=== PATIENT | female | born 1960 | race Caucasian/White ===

== ENCOUNTER 2020-07-29 17:10 | Inpatient (IN) | payer OTHER, SELFPAY ==
[2020-07-29 17:19] VITALS: BP 119/87; PULSE 84; RESP 14; TEMP 36.8; O2SAT 96
[2020-07-29 18:19] LABS: Abs Immature Grans 0.05 10^3/uL (0.0-0.06); Absolute Basophil Count 0.01 10^3/uL (0.0-0.2); Absolute Eosinophil Count 0.17 10^3/uL (0.0-0.7); Absolute Lymphocyte Count 1.08 10^3/uL (1.2-3.4); Absolute Monocyte Count 0.73 10^3/uL (0.1-0.8); Basophils % 0.1; Eosinophils % 1.2; HCT 41.6 % (36.0-46.0); HGB 13.6 g/dL (11.2-15.7); Immature Grans % 0.4; Lymphocytes % 7.7; MCH 29.6 pg (27.0-33.0); MCHC 32.7 % (32.0-36.0); MCV 90.6 fL (80-95); MPV 9.8 fL (8.0-11.0); Monocytes % 5.2; Neutrophils % 85.4; Nucleated RBC 0 %; Platelet Count 389 10^3/uL (130-400); RBC 4.59 10^6/uL (3.93-5.22); RDW 14.1 % (11.7-14.6); RDW-SD 46.8 fL; WBC 14.03 10^3/uL (4.4-10.8)
[2020-07-29 18:20] LABS: Absolute Neutrophil Count 11.98 10^3/uL (1.2-6.7)
[2020-07-29 18:38] LABS: ALT 35 U/L (14-59); AST 15 U/L (15-37); Albumin 4.1 g/dL (3.4-5.0); Alkaline Phosphatase 76 U/L (46-116); Anion Gap 10.2 mmol/L (3-11); BUN 10 mg/dL (7-18); Bilirubin, Total 0.3 mg/dL (0.2-1.0); CO2 23.8 mmol/L (21.0-32.0); CREATININE 0.95 mg/dL (0.55-1.02); Calcium 8.9 mg/dL (8.5-10.1); Chloride 106 mmol/L (98-107); Glucose 112 mg/dL (74-106); Sodium 140 mmol/L (136-145); Total Protein 7.2 g/dL (6.4-8.2)
--- NOTE | 2020-07-29 18:53 | W.ED.GENAD ---
Discharge Plan Disposition Patient Disposition: [facility] INPATIENT Condition: Serious Discharge Details Chief Complaint: RashLesion Clinical Impression: Cellulitis Admit Date/Time: 07/29/20 19:42 Admit Provider: Petey Romo Attending Provider: Petey Romo Primary Care Provider: Unknown,Unknown ED Provider: Pal Chung Medical Decision Making <KERRIE López - Last Filed: 07/29/20 21:48> This is a 60-year-old female who thought she came in contact with poison russell on , woke up Sunday with a rash to the rest of her buttocks. Subsequently has spread, becoming more painful and itchy. She was placed on steroids and doxycycline by her primary care provider on Sunday however not having any improvement of her symptoms. She has been using Benadryl and ycar-gby-yskjkjf creams with very little relief. She denies any obvious insect bite, fever, joint pain, body aches, etc. Clinically she has an impressive erythematous, indurated rash that includes her back, buttocks, posterior upper legs, perineum. There is no areas of induration or exquisite tenderness. There are areas of ecchymosis but no petechiae. There is a single shallow lesion with serous drainage. She appears well, nontoxic. She is afebrile, blood pressure 119/87. Pulse in the 80s. Although she appears fairly well I am concerned given the rapid spread of the rash and worsening of her symptoms even though she is on both steroids and antibiotics. I believe that this very well could have began as a contact dermatitis however there appears to be a superimposed cellulitis at this point. I did request that Dr. Nicholson evaluate the patient as well. He personally evaluated the patient, please see his note. After his evaluation he recommended IV Zosyn, vancomycin, and admission. Laboratory values thus far have revealed a white count of 14.03, absolute neutrophils 11.98. H&H unremarkable. Platelets 389. Chemistries unremarkable. Tickborne panel pending. I did jan the margins of the cellulitis with a skin marker. Case discussed with our hospitalist team, Dr. Romo. He accepts admission of the patient, I will write holding orders. Medical Records Medical records reviewed: Yes I reviewed the patient's medical records. Lab Data Lab results reviewed: Yes I reviewed the patient's lab results. Lab results narrative: Laboratory Tests Range/Units 07/29/20 07/29/20 18:07 18:07 WBC (4.4-10.8) 10^3/uL 14.03 H RBC (3.93-5.22) 10^6/uL 4.59 Hgb (11.2-15.7) g/dL 13.6 Hct (36.0-46.0) % 41.6 MCV (80-95) fL 90.6 MCH (27.0-33.0) pg 29.6 MCHC (32.0-36.0) % 32.7 RDW (11.7-14.6) % 14.1 Plt Count (130-400) 10^3/uL 389 MPV (8.0-11.0) fL 9.8 Immature Gran % 0.4 Neutrophils % 85.4 Lymphocytes % 7.7 Monocytes % 5.2 Eosinophils % 1.2 Basophils % 0.1 Nucleated RBC % % 0 Absolute Neutrophils (1.2-6.7) 10^3/uL 11.98 H Absolute Lymphocytes (1.2-3.4) 10^3/uL 1.08 L Absolute Monocytes (0.1-0.8) 10^3/uL 0.73 Absolute Eosinophils (0.0-0.7) 10^3/uL 0.17 Absolute Basophils (0.0-0.2) 10^3/uL 0.01 Sodium (136-145) mmol/L 140 Potassium (3.5-5.1) mmol/L 4.0 Chloride (98-107) mmol/L 106 Carbon Dioxide (21.0-32.0) mmol/L 23.8 Anion Gap (3-11) mmol/L 10.2 BUN (7-18) mg/dL 10 Creatinine (0.55-1.02) mg/dL 0.95 Estimated GFR/1.73 m2 (mL/min/1.73m2) >= 60.00 Glucose (74-106) mg/dL 112 H Calcium (8.5-10.1) mg/dL 8.9 Total Bilirubin (0.2-1.0) mg/dL 0.3 AST (15-37) U/L 15 ALT (14-59) U/L 35 Alkaline Phosphatase (46-116) U/L 76 Total Protein (6.4-8.2) g/dL 7.2 Albumin (3.4-5.0) g/dL 4.1 <Adam Nicholson MD - Last Filed: 07/29/20 21:39> Patient seen, examined, and discussed with KERRIE Chung. I agree with treatment plan as discussed/documented. Concern for likely contact dermatitis versus insect bite with superimposed cellulitis. No crepitus. Labs reviewed and leukocytosis noted which may be related to steroid. I am concerned about potential immunosuppression at this point with the steroid. Plan to increase antibiotic coverage to broad-spectrum and admit for further treatment. HPI <KERRIE López - Last Filed: 07/29/20 21:48> General Mode of arrival: ambulatory. Date/Time Provider Initiated Documentation: 07/29/20 17:27. Limitations to Documentation: no limitations. Information obtained by: patient. HPI Narrative: This is a 60-year-old female who denies any significant past medical history. She reports that she was in [facility] last week, went to urinate outside and when she sat close to this and believes that she touched poison russell. The following morning she had a small itchy red rash to the right side of her buttocks. The rash has spread becoming both painful and itchy. Subsequently she followed up with Dr. Andrews on Sunday and placed on both prednisone for a possible contact dermatitis and doxycycline for potential tickborne illness. She reports that the pain and itching continues to get worse although the itching is her primary concern. She denies obvious insect bite. She denies rash, chest pain, shortness of breath difficulty breathing, abdominal pain, nausea, vomiting, joint pain. She denies any dysuria. She has been using [id number] Benadryl and cream without relief. Related Data Home Medications Medication Instructions Recorded Confirmed acetaminophen [Tylenol] 650 mg PO ONCE MDD unknown 07/29/20 07/29/20 diphenhydramine HCl [Benadryl 50 mg PO PRN PRN 07/29/20 07/29/20 Allergy] Allergies Allergy/AdvReac Type Severity Reaction Status Date / Time egg Allergy Nausea Unverified 07/29/20 17:24 oxycodone Allergy Other (See Unverified 07/29/20 17:24 Comment) General Stated Complaint: RashLesion MAURICE: 3 Review of Systems <KERRIE López - Last Filed: 07/29/20 21:48> Constitutional Constitutional: Denies chills, Denies fatigue and Denies fever(s) ENT Ears, Nose, Mouth, and Throat: Denies neck pain Cardiovascular Cardiovascular: Denies chest pain and Denies dyspnea Respiratory Respiratory: Denies cough and Denies dyspnea Gastrointestinal Gastrointestinal: Denies abdominal pain, Denies nausea and Denies vomiting Genitourinary Genitourinary: Denies dysuria Musculoskeletal Musculoskeletal: Denies back pain, Denies neck pain, Denies numbness and Denies tingling Integumentary/Breasts Skin/Breast: Reports rash Neurologic Neurologic: Denies numbness and Denies tingling Endocrine Endocrine: Denies fatigue PFSH <KERRIE López - Last Filed: 07/29/20 21:48> Social History Smoking/Tobacco Use Status: Never Alcohol Intake: current Substance use type: marijuana Do you feel safe at home: Yes Do you feel safe in your relationship?: Yes Exam <KERRIE López - Last Filed: 07/29/20 21:48> Const General: cooperative, healthy appearing, comfortable and no acute distress Orientation: alert, awake and oriented x3 HENMT Head: normal to inspection, normocephalic and atraumatic Mouth: moist mucous membranes Eyes Conjunctivae: conjunctivae normal Sclera: sclerae normal Neck Neck: normal visual inspection, full ROM, trachea midline and supple Resp Effort & Inspection: normal respiratory effort and able to speak in complete sentences Auscultation: clear to auscultation bilaterally Cardio Rate: regular rate Rhythm: regular rhythm GI Palpation: soft and nontender Other: Female RN in room Female genitals images: 1. Erythema, warmth, tenderness, mild induration Back/Spine/Pelvis Back: no CVA tenderness and No back tenderness Back/spine/pelvis image: 1. Erythema, warmth, tenderness. 2. Area of ecchymosis 3. Shallow wound with serous drainage. Mild tenderness. Skin General skin exam: erythema and no petechiae Neuro General: patient alert, patient awake, patient oriented x3, moves all extremities and no focal motor deficits Cognition: normal cognition Gait: normal gait Motor: muscle tone normal throughout Sensory Exam: no sensory deficits noted Extrem General: full ROM and capillary refill normal Psych Appearance: grossly normal Mental Status: mental status grossly normal Course <KERRIE López - Last Filed: 07/29/20 21:48> Vital Signs Vital signs: Vital Signs Temperature 36.8 C 07/29/20 17:19 Pulse 84 07/29/20 17:19 Respiratory Rate 14 07/29/20 17:19 Blood Pressure 119/87 07/29/20 17:19 Pulse Oximetry 96 07/29/20 17:19 Temperature 36.8 C 07/29/20 17:19 Temperature Source Skin 07/29/20 17:19 Pulse 84 07/29/20 17:19 Respiratory Rate 14 07/29/20 17:19 Respiratory Effort Non-Labored 07/29/20 17:25 Blood Pressure 119/87 07/29/20 17:19 Blood Pressure Position Sitting 07/29/20 17:19 Pulse Oximetry 96 07/29/20 17:19 Oxygen Delivery Method Room Air 07/29/20 17:19 Oxygen Flow Rate 0 07/29/20 17:19 Pain Level 5 07/29/20 17:19 Lab/Test Results Lab/Test Results: Laboratory Tests Range/Units 07/29/20 07/29/20 18:07 18:07 WBC (4.4-10.8) 10^3/uL 14.03 H RBC (3.93-5.22) 10^6/uL 4.59 Hgb (11.2-15.7) g/dL 13.6 Hct (36.0-46.0) % 41.6 MCV (80-95) fL 90.6 MCH (27.0-33.0) pg 29.6 MCHC (32.0-36.0) % 32.7 RDW (11.7-14.6) % 14.1 Plt Count (130-400) 10^3/uL 389 MPV (8.0-11.0) fL 9.8 Immature Gran % 0.4 Neutrophils % 85.4 Lymphocytes % 7.7 Monocytes % 5.2 Eosinophils % 1.2 Basophils % 0.1 Nucleated RBC % % 0 Absolute Neutrophils (1.2-6.7) 10^3/uL 11.98 H Absolute Lymphocytes (1.2-3.4) 10^3/uL 1.08 L Absolute Monocytes (0.1-0.8) 10^3/uL 0.73 Absolute Eosinophils (0.0-0.7) 10^3/uL 0.17 Absolute Basophils (0.0-0.2) 10^3/uL 0.01 Sodium (136-145) mmol/L 140 Potassium (3.5-5.1) mmol/L 4.0 Chloride (98-107) mmol/L 106 Carbon Dioxide (21.0-32.0) mmol/L 23.8 Anion Gap (3-11) mmol/L 10.2 BUN (7-18) mg/dL 10 Creatinine (0.55-1.02) mg/dL 0.95 Estimated GFR/1.73 m2 (mL/min/1.73m2) >= 60.00 Glucose (74-106) mg/dL 112 H Calcium (8.5-10.1) mg/dL 8.9 Total Bilirubin (0.2-1.0) mg/dL 0.3 AST (15-37) U/L 15 ALT (14-59) U/L 35 Alkaline Phosphatase (46-116) U/L 76 Total Protein (6.4-8.2) g/dL 7.2 Albumin (3.4-5.0) g/dL 4.1
[2020-07-29] MEDS: diphenhydrAMINE 50 MG/ML VIAL (19:22)
[2020-07-29] MEDS: PIPERACILLIN/TAZO 3.375 GM in Normal Saline 50 ML IVPB ×2 (19:22→23:45)
[2020-07-29 20:17] VITALS: BP 123/75; PULSE 57; RESP 16; O2SAT 98
--- NOTE | 2020-07-29 20:36 | NUR.NOTE ---
transported to med-surg with Cece GRUBER. jourdan roblesusing
[2020-07-29 20:47] VITALS: BP 102/69; PULSE 58; RESP 18; TEMP 36.2; O2SAT 98
[2020-07-29] MEDS: Normal Saline Flush 10 ML SYR IVP ×2 (22:08→23:45)
--- NOTE | 2020-07-29 23:43 | W.PM.HP.N ---
Date of service: 07/29/20 Time of Service: 22:43 Assessment and Plan Assessment and plan (1) Cellulitis: Status: Acute Assessment and plan: I think this rash may have started as an allergic rash but with the rapid spread and total lack of response to prednisone, I think this is a soft tissue infection. It did not respond to doxycycline. This point the pattern is not consistent with a classic erythema migrans, and was not responding to outpatient doxycycline. A tick and Lyme panel is pending. Vancomycin and Zosyn is rather aggressive, but not unreasonable given lack of response to doxycycline and the dramatic spread. We will continue this and till we see a clinical response. I do not see pus to culture. Elevated white count is attributable to the steroid use, she does not appear to be systemically toxic. Her labs do not suggest systemic toxicity from infection or systemic drug reaction. Level of itch does suggest some element of allergic reaction. The patient is quite uncomfortable so I have written for several options to help control the itch, including topical triamcinolone, zinc barrier cream, diphenhydramine, topical lidocaine, and doxepin. (2) DVT prophylaxis: Status: Acute Assessment and plan: Low molecular weight heparin given some inflammation (3) Discharge planning issues: Status: Acute Assessment and plan: Patient is currently stable on the medical floor. Anticipate transition to oral antibiotics and discharge when her skin infection is improving. History of Present Illness History of Present Illness Chief Complaint: rash Narrative: 60-year-old healthy female who months with 6 days of spreading rash on her buttocks despite outpatient treatment with prednisone and doxycycline. Patient attributes to rash to [place] [facility] 1 week prior to admission. Next morning, she noted a red itchy patch on her buttocks. By the time she drove back from [facility] to [place], the rash was already spreading. She suspected it was some poison russell from the brush. 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 Patient's rash did not improve at all and continue to spread after more than 48 hours on his therapy, and she presented to the emergency room. She describes a terrible burning itch, making it hard for her to get comfortable. She has a mild pain in the area. She does not feel sick otherwise. She has had poison russell, but never like this. She denies noting a tick bite. She has been on vacation like a for 1 week prior to returning on the Sunday prior to admission. Review of Systems Constitutional Constitutional: Denies anorexia, Denies chills, Denies fatigue, Denies fever(s), Denies lethargy and Denies weakness Eyes Eyes: Denies change in vision, Denies irritation and Denies itchy eyes ENT Ears, Nose, Mouth, and Throat: Denies dizziness, Denies mouth lesions, Reports nasal congestion (Chronic allergies, not bad), Denies nasal discharge, Denies sore throat, Denies throat swelling and Denies tongue swelling Cardiovascular Cardiovascular: Denies chest pain, Denies palpitations, Denies dyspnea and Denies orthopnea Respiratory Respiratory: Denies cough, Denies excessive phlegm production, Denies dyspnea and Denies wheezing Gastrointestinal Gastrointestinal: Denies abdominal pain, Denies heartburn, Denies diarrhea and Denies vomiting Genitourinary Genitourinary: Denies abnormal vaginal bleeding, Denies hematuria, Denies genital lesions, Denies dysuria, Denies urinary incontinence, Denies vaginal discharge and Reports vaginal pruritus (Rash does not involve vagina) Musculoskeletal Musculoskeletal: Denies arthralgias and Denies joint swelling Integumentary/Breasts Skin/Breast: Reports as per HPI Neurologic Neurologic: Denies dizziness, Denies sensory deficit and Denies weakness Psychiatric Psychiatric: Denies mood swings Endocrine Endocrine: Denies fatigue and Denies palpitations Hematologic/Lymphatic Hematologic/Lymphatic: Denies easy bleeding and Denies lymphadenopathy Allergic/Immunologic Allergic/Immunologic: Denies itchy eyes, Denies throat swelling, Denies tongue swelling and Denies wheezing FOR[facility] Medical History (Updated 07/30/20 @ 00:00 by Petey Romo) Seasonal allergies Surgical History (Updated 07/29/20 @ 23:51 by Petey Romo) Status post repeat low transverse section Social History (Updated 07/29/20 @ 23:53 by Petey Romo) Smoking/Tobacco Use Status: Never Alcohol Intake: current Substance use type: marijuana Do you feel safe at home: Yes Do you feel safe in your relationship?: Yes Additional Social history: Lives in [place]. Enjoys outdoor sports including biking and kayaking. 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 Originally from [facility], moved to the area at age 20 Meds Home Medications and Allergies Home Medications Medication Instructions Recorded Confirmed Type acetaminophen [Tylenol] 650 mg PO ONCE MDD unknown 07/29/20 07/29/20 History diphenhydramine HCl [Benadryl 50 mg PO PRN PRN 07/29/20 07/29/20 History Allergy] Allergies Allergy/AdvReac Type Severity Reaction Status Date / Time egg Allergy Nausea Unverified 07/29/20 17:24 oxycodone Allergy Other (See Unverified 07/29/20 17:24 Comment) Exam Narrative Exam Narrative: GEN: Alert and oriented, pleasent and cooperative, gives linear history. Stepping [id number]-[id number]-[id number] while standing on side of bed, not in distress but uncomfortable HEENT: Head atraumatic. Conjunctiva clear, no icterus. PEERL, EOMI. no rhinorrhea. MMM, OP benign. Neck is supple with no masses or lymphadenopathy LUNGS: CTAB with normal effort, no wheezing CV: RRR with no murmurs, gallops, or rubs. ABD: +BS, soft, NT/ND EXT: no cyanosis, clubbing, or edema MSK: No joint redness or swelling NEURO: CN 2-12 grossly intact. Normal movement of 4 extremities. Normal speech and coordination SKIN: Deep red well-defined patch on both sides of the buttocks extending up to the lower back, as well as around to the bilateral groin and right hip area, sparing the vulva and mons pubis area. Dark regions on left buttocks and sacral area with open ulcerations but no purulence noted and no fluctuant pockets noted. PSYCH: normal mood and affect Results Labs Result diagrams: 07/29/20 18:07 07/29/20 18:07 Labs: Laboratory Results - last 24 hr 07/29/20 07/29/20 18:07 18:07 WBC 14.03 H RBC 4.59 Hgb 13.6 Hct 41.6 MCV 90.6 MCH 29.6 MCHC 32.7 RDW 14.1 Plt Count 389 MPV 9.8 Immature Gran % 0.4 Neutrophils % 85.4 Lymphocytes % 7.7 Monocytes % 5.2 Eosinophils % 1.2 Basophils % 0.1 Nucleated RBC % 0 Absolute Neutrophils 11.98 H Absolute Lymphocytes 1.08 L Absolute Monocytes 0.73 Absolute Eosinophils 0.17 Absolute Basophils 0.01 Sodium 140 Potassium 4.0 Chloride 106 Carbon Dioxide 23.8 Anion Gap 10.2 BUN 10 Creatinine 0.95 Estimated GFR/1.73 m2 >= 60.00 Glucose 112 H Calcium 8.9 Total Bilirubin 0.3 AST 15 ALT 35 Alkaline Phosphatase 76 Total Protein 7.2 Albumin 4.1 Last Vital Signs Temp 36.2 C L 07/29/20 20:47 Pulse 58 L 07/29/20 20:47 Resp 18 07/29/20 20:47 BP 102/69 07/29/20 20:47 Pulse Ox 98 07/29/20 20:47 COVID-19 Screening Have you,or household,traveled outside [place] in last 14 days?: Yes Had IN PERSON contact w/suspected or confirmed C-19 person: No
[2020-07-30] MEDS: Lidocaine 2% Jelly 6 ML SYR TP ×4 (00:35→23:53)
[2020-07-30] MEDS: PIPERACILLIN/TAZO 3.375 GM in Normal Saline 50 ML IVPB ×4 (05:53→23:53)
[2020-07-30 07:13] LABS: Abs Immature Grans 0.05 10^3/uL (0.0-0.06); Absolute Basophil Count 0.02 10^3/uL (0.0-0.2); Absolute Eosinophil Count 0.84 10^3/uL (0.0-0.7); Absolute Lymphocyte Count 2.68 10^3/uL (1.2-3.4); Basophils % 0.2; Eosinophils % 7.5; HCT 38.2 % (36.0-46.0); HGB 12.6 g/dL (11.2-15.7); Immature Grans % 0.4; Lymphocytes % 23.9; MPV 9.6 fL (8.0-11.0); Nucleated RBC 0 %; Platelet Count 300 10^3/uL (130-400); RDW 14.2 % (11.7-14.6); WBC 11.21 10^3/uL (4.4-10.8)
[2020-07-30 07:15] LABS: Absolute Neutrophil Count 6.73 10^3/uL (1.2-6.7)
[2020-07-30] MEDS: Triamcinolone 0.1% CR 15 GM TUBE TP ×3 (08:17→20:10)
[2020-07-30] MEDS: Enoxaparin 40 MG/0.4 ML SYR SC (08:17)
[2020-07-30 08:22] VITALS: BP 139/81; PULSE 65; RESP 16; TEMP 35.9; O2SAT 96
[2020-07-30] MEDS: methylPREDNISolone SUCC 125 MG VIAL 60 MG IVP (10:10)
[2020-07-30] MEDS: Famotidine 20 MG TAB PO ×2 (10:11→20:10)
[2020-07-30 12:18] LABS: Procalcitonin < 0.1 ng/mL
[2020-07-30 13:19] LABS: COVID-19 RT-PCR UVMMC Result Negative (Negative)
--- NOTE | 2020-07-30 13:36 | INITIAL_ITS ---
- If Service Date Differs Date of service: 07/30/20 Time of Service: 13:36 Care Management Initial Assess REASON FOR HOSPITALIZATION:: Cellulitis PAST MEDICAL HISTORY/PAST SURGICAL HISTORY:: Medical History (Updated 07/30/20 @ 00:00 by Petey Romo). Seasonal allergies. Surgical History (Updated 07/29/20 @ 23:51 by Petey Romo). Status post repeat low transverse section PREVIOUS FUNCTIONAL STATUS/SOCIAL/FAMILY SUPPORTS:: Dorita lives in [place]. She has two children, who both live in [place], and other relatives near the [facility] in [place]. 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 She is independent at baseline. CURRENT FUNCTIONAL STATUS:: Dorita was lying in bed when CM met with her. She laughed while explaining to CM how she contracted the cellulitis- from poison russell [place]. She reported that she expected to remain under observation tonight, and potentially be discharged tomorrow. CM will continue to follow. ADVANCE DIRECTIVES:: none on file. Has patient been provided with info about the portal/API?: Yes Did the patient sign up for the portal?: No CODE STATUS:: Full Code INSURANCE COVERAGE / FINANCIAL ISSUES:: [employer] CURRENT HOME/COMMUNITY SERVICES/EQUIPMENT:: No equipment or services in the community currently. PRIMARY CARE PHYSICIAN:: unknown POTENTIAL DISCHARGE NEEDS:: Evaluations of further needs, follow up appointment s. PATIENT/FAMILY EDUCATION NEEDS:: Review discharge instructions, discussion of self care needs including ask me three. ANTICIPATED BARRIERS TO DISCHARGE:: None identified at this time. TRANSPORTATION:: Via private vehicle by herself, if cleared to drive. PLAN:: Anticipate Dorita will return home when medically cleared. She will likely drive herself home, if cleared by provider to drive. She will follow up with her PCP and discharge plan of care. CM will continue to follow.
--- NOTE | 2020-07-30 13:37 | W.PM.PROGNOT ---
Date of Service Date of service: 07/30/20 Time of Service: 13:39 Assessment and Plan Assessment and plan (1) Contact dermatitis due to poison russell: Status: Acute Assessment and plan: The patient feels a lot better with IV and topical steroids as well as H2 blockers, doxepine, and calamine lotion as well as abx. Will continue above regimen overnight. I suspect the patient could be switched to all PO agents tomorrow. (2) Cellulitis: Status: Acute Assessment and plan: I agree that there is likely a component of superinfection. Continue empiric vanco/zosyn for tonight. I suspect the patient could be discharged home on keflex tomorrow if continues to improve. (3) DVT prophylaxis: Status: Acute Assessment and plan: lovenox (4) Discharge planning issues: Status: Acute Assessment and plan: Full code. Anticipate discharge home in the next 24-48 hours Subjective Subjective Interval history since last seen: Ms Montes states she is finally starting to feel better. She states she was able to sit on her bottom for the first time in a week today. She is less itchy. She was able to get some sleep. She denies dizziness, chest pain, shortness of breath, nausea. She is laughing about this episode. Exam Narrative Exam Narrative: General: Very pleasant middle-aged female, laying in bed on her side, A&Ox3, in good spirits HEENT: EOMI, MMM Heart: RRR, no m/r/g Lungs: CTAB Abdomen: soft, nondistended, nontender Extremities: nonpitting edema, RLE diameter bigger than LLE (her chronic - had injury to RLE). Skin: Confluent erythematous plaques on B buttocks tracking up the spine, upper posterior thigh and groin, sparing vulva; appears to be receding from circumscribed borders Objective Last Vital Signs Temp 35.9 C L 07/30/20 08:22 Pulse 65 07/30/20 08:22 Resp 16 07/30/20 08:22 BP 139/81 07/30/20 08:22 Pulse Ox 96 07/30/20 08:22 Laboratory Results - last 24 hr 07/29/20 07/29/20 07/29/20 18:07 18:07 20:10 WBC 14.03 H RBC 4.59 Hgb 13.6 Hct 41.6 MCV 90.6 MCH 29.6 MCHC 32.7 RDW 14.1 Plt Count 389 MPV 9.8 Immature Gran % 0.4 Neutrophils % 85.4 Lymphocytes % 7.7 Monocytes % 5.2 Eosinophils % 1.2 Basophils % 0.1 Nucleated RBC % 0 Absolute Neutrophils 11.98 H Absolute Lymphocytes 1.08 L Absolute Monocytes 0.73 Absolute Eosinophils 0.17 Absolute Basophils 0.01 Sodium 140 Potassium 4.0 Chloride 106 Carbon Dioxide 23.8 Anion Gap 10.2 BUN 10 Creatinine 0.95 Estimated GFR/1.73 m2 >= 60.00 Glucose 112 H Calcium 8.9 Total Bilirubin 0.3 AST 15 ALT 35 Alkaline Phosphatase 76 Total Protein 7.2 Albumin 4.1 Procalcitonin COVID-19 PCR Negative Nasopharyn COVID-19 PCR Not Applicable Ref Test [facility] 07/30/[facility] 07/30/20 07:02 07:02 WBC 11.21 H RBC 4.20 Hgb 12.6 Hct 38.2 MCV 91.0 MCH 30.0 MCHC 33.0 RDW 14.2 Plt Count 300 MPV 9.6 Immature Gran % 0.4 Neutrophils % 60.0 Lymphocytes % 23.9 Monocytes % 8.0 Eosinophils % 7.5 Basophils % 0.2 Nucleated RBC % 0 Absolute Neutrophils 6.73 H Absolute Lymphocytes 2.68 Absolute Monocytes 0.90 H Absolute Eosinophils 0.84 H Absolute Basophils 0.02 Sodium Potassium Chloride Carbon Dioxide Anion Gap BUN Creatinine Estimated GFR/1.73 m2 Glucose Calcium Total Bilirubin AST ALT Alkaline Phosphatase Total Protein Albumin Procalcitonin < 0.1 COVID-19 PCR Nasopharyn COVID-19 PCR Ref Test Perform Site
--- NOTE | 2020-07-30 13:51 | PHA.REVIEW ---
Pharmacy Admission Review - Admission Clinical Review (Last Updated 07/29/20 @ 23:50 by Petey Romo) Discharge planning issues (Acute) DVT prophylaxis (Acute) Cellulitis (Acute) egg Allergy (Unverified 07/29/20 17:24) Nausea oxycodone Allergy (Unverified 07/29/20 17:24) Other (See Comment) Height 5 ft 1 in Weight 85.5 kg - Renal Dosing Renal Dosing: BUN 10 mg/dL (7-18) 07/29/20 18:07 Creatinine 0.95 mg/dL (0.55-1.02) 07/29/20 18:07 Medications needing adjustments: Reviewed - Anticoagulation Anticoagulation: Hgb 12.6 g/dL (11.2-15.7) 07/30/20 07:02 Hct 38.2 % (36.0-46.0) 07/30/20 07:02 Plt Count 300 10^3/uL (130-400) 07/30/20 07:02 Creatinine 0.95 mg/dL (0.55-1.02) 07/29/20 18:07 DVT Prohphylaxis: Reviewed Medications: Enoxaparin - Opiate Usage Evaluate Pain Scale/Pains Meds: N/A - Relevant Labs Sodium 140 mmol/L (136-145) 07/29/20 18:07 Potassium 4.0 mmol/L (3.5-5.1) 07/29/20 18:07 Chloride 106 mmol/L (98-107) 07/29/20 18:07 Electrolytes, C-Reactive P, ESR: Reviewed - DM Control DM Control: Glucose 112 mg/dL (74-106) H 07/29/20 18:07 Insulin Dosing: Reviewed - Heart Failure/GA EF%, DASHAWN's, B-Blockers, Diuretics: Reviewed - BP Control BP Control: Blood Pressure 139/81 If elevated: Reviewed - Qtc Review If Elevated: N/A - IV to PO Switch IV Medications: Reviewed (PO tomorrow) - Home Meds Home Med List reviewed: Reviewed - Current meds Current Medication Order Review: Reviewed - Comments Comments/Follow Ups: Zosyn + Vanco; switch to PO cephalexin tomorrow if improvement
[2020-07-30 15:46] VITALS: BP 117/78; PULSE 64; RESP 18; TEMP 36.8; O2SAT 98
--- NOTE | 2020-07-30 15:47 | CHAPLAIN ---
Dorita told me she could use some prayers, and explained how she got poison russell on her butt, that then spread and is under skin like cellulitis now. She [place] [facility] when this happened and drove herself home. She has relatives in [place], but told them they did not need to visit her. This past year her mom , she explained, but a niece got and another is so the family has reasons to celebrate, she said.
[2020-07-30] MEDS: Normal Saline Flush 10 ML SYR IVP (18:01)
[2020-07-30 19:10] VITALS: BP 127/83; PULSE 58; RESP 18; TEMP 36.2; O2SAT 99
[2020-07-30 23:54] VITALS: BP 134/75; PULSE 57; RESP 19; TEMP 36.8; O2SAT 98
[2020-07-31] MEDS: Normal Saline Flush 10 ML SYR IVP ×2 (05:59→09:08)
[2020-07-31] MEDS: PIPERACILLIN/TAZO 3.375 GM in Normal Saline 50 ML IVPB ×2 (05:59→12:17)
[2020-07-31] MEDS: Lidocaine 2% Jelly 6 ML SYR TP (06:30)
[2020-07-31 07:38] VITALS: BP 149/78; PULSE 60; RESP 16; TEMP 36.3; O2SAT 99
[2020-07-31] MEDS: predniSONE 20 MG TAB 60 MG PO (08:02)
[2020-07-31] MEDS: Enoxaparin 40 MG/0.4 ML SYR SC (08:03)
[2020-07-31] MEDS: Famotidine 20 MG TAB PO (08:03)
[2020-07-31] MEDS: Triamcinolone 0.1% CR 15 GM TUBE TP ×2 (08:03→14:22)
[2020-07-31 08:06] LABS: Abs Immature Grans 0.06 10^3/uL (0.0-0.06); Absolute Basophil Count 0.04 10^3/uL (0.0-0.2); Absolute Eosinophil Count 0.49 10^3/uL (0.0-0.7); Absolute Monocyte Count 1.03 10^3/uL (0.1-0.8); Basophils % 0.3; Eosinophils % 3.6; Immature Grans % 0.4; Lymphocytes % 20.7; MCH 29.8 pg (27.0-33.0); MCHC 33.3 % (32.0-36.0); MCV 89.4 fL (80-95); MPV 9.9 fL (8.0-11.0); Monocytes % 7.6; Neutrophils % 67.4; Nucleated RBC 0 %; Platelet Count 327 10^3/uL (130-400); RBC 4.36 10^6/uL (3.93-5.22); RDW 13.8 % (11.7-14.6); RDW-SD 45.1 fL; WBC 13.55 10^3/uL (4.4-10.8)
[2020-07-31 08:13] LABS: Absolute Neutrophil Count 9.13 10^3/uL (1.2-6.7)
[2020-07-31 08:19] LABS: Anion Gap 8.4 mmol/L (3-11); BUN 12 mg/dL (7-18); CO2 25.6 mmol/L (21.0-32.0); CREATININE 0.86 mg/dL (0.55-1.02); Chloride 108 mmol/L (98-107); Glucose 90 mg/dL (74-106); Magnesium 2.1 mg/dL (1.8-2.4); Potassium 3.5 mmol/L (3.5-5.1); Sodium 142 mmol/L (136-145)
[2020-07-31 08:25] LABS: Vancomycin, Trough 11.8 ug/mL (10.0-20.0)
--- NOTE | 2020-07-31 12:05 | PDOC.CMPRO ---
- If Service Date Differs Date of service: 07/31/20 Time of Service: 12:05 Care Management Progress Note S/O: No change in plan. Dorita developed loose stools overnight and is being started on probiotics this morning. She is afebrile and remains on steroids and antibiotics. Anticipate those will be switched from IV to PO today. CM will continue to follow. A: Dorita is a 60 year old female admitted to [facility] on 07/29/20 for cellulitis. P: Plan remains for Dorita to be discharged home with no new services when medically cleared by provider. She will likely drive herself home, if cleared by provider to drive. She will follow up with her PCP and discharge plan of care as directed. CM will continue to follow.
[2020-07-31] MEDS: Lactobacillus Acidophilus CAP 1 CAP PO (14:22)
--- NOTE | 2020-07-31 15:37 | W.PM.DS.N ---
Date of service: 07/31/20 Time of Service: 15:37 DS: Diagnosis Discharge Diagnosis (1) Contact dermatitis due to poison russell: Status: Acute (2) Cellulitis: Status: Acute Discharge Plan Disposition Condition: Improving Discharge Details Reason For Visit: CELLULITIS, Admit Date/Time: 07/29/20 19:42 Admit Provider: Petey Romo Attending Provider: Petey Romo Primary Care Provider: Unknown,Unknown Hospital Course Hospital Course: 60-year-old healthy female who presents with 6 days of spreading rash on her buttocks despite outpatient treatment with prednisone and doxycycline. Patient attributes to rash to urinating in [place] brush [place] [facility] 1 week prior to admission. See Dr. Petey Romo's admission H&P for details.Patient has failed outpatient treatment with prednisone and doxycycline with worsening rash over both buttocks and upper posterior thighs with a burning itch. Patient required IV corticosteroids and was transitioned to p.o. prednisone. Patient was started on Zosyn and vancomycin for an allegedly cellulitis. Patient never had a fever and did not show signs of systemic toxicity. Patient had elevated white cell count on admission of 14,000 however patient had been on steroids prior to presenting to the hospital. Her procalcitonin level was less than 0.1. CMP was unremarkable. Her COVID PCR test was negative. Her tick antibody panel was sent off and is pending at this time. Patient improved with her rash with use of calamine as well as Kenalog cream. For her pruritus she was given Pepcid to help with the itching along with PRN use of Benadryl and doxepin. She never developed a febrile response throughout her hospital stay. Her vancomycin and Zosyn have been discontinued. She will continue on Keflex 500 mg 4 times daily for 5 more days along with 5 more days of prednisone 60 mg daily. She will continue to take the Pepcid and can use the doxepin on a as needed basis. She should continue use of calamine and Kenalog lotion and use oatmeal baths to soothe the skin. She can use lidocaine jelly topically as needed for any burning discomfort. She should follow-up with her primary care provider Minh Andrews NP in [place] early next week. Home Meds and New Rx's Prescriptions: New doxepin 25 mg Capsule 25 mg PO HS PRN PRN (Reason: itch and insomnia) Qty: 7 RF: 0 prednisone 20 mg Tablet 60 mg PO DAILY 5 Days Qty: 15 RF: 0 triamcinolone acetonide 0.1 % Cream 1 applic topical TID Qty: 120 RF: 0 famotidine 20 mg Tablet 20 mg PO BID Qty: 14 RF: 0 calamine-zinc oxide 8-8 % Lotion 1 applic topical BID PRN PRNQty: 250 RF: 1 lidocaine HCl [Glydo] 2 % Jelly In Applicator 6 ml topical DIRECTED PRN (Reason: Itching) Qty: 250 RF: 0 cephalexin [Keflex] 500 mg capsule 500 mg PO QID Qty: 20 RF: 0 Continued diphenhydramine HCl [Benadryl Allergy] 25 mg Tablet 50 mg PO PRN PRNRF: 0 Changed acetaminophen [Tylenol] 325 mg Capsule 650 mg PO QID MDD unknown PRN (Reason: Pain) Qty: 0 RF: 0 Discharge Instructions Instructions: Contact Dermatitis (DC), Cellulitis (DC) Activity:: Activity as Tolerated Activity:: Activity as Tolerated Equipment/Supplies:: No Equipment Needed Diet:: Normal Diet Discharge Data Discharge Physician: Pal Oro DS: Summary Status at Discharge Functional status at discharge: independent ambulation Overall status at discharge: patient is progressing back to baseline Mental Status: mental status grossly normal Speech and Movement: speech and movement normal Mood: congruent mood Affect: normal affect Time Spent with Patient providing and/or coordinating discharge services: Less than 30 minutes Exam Narrative Exam Narrative: Middle-age female who is alert and oriented person place time circumstance in no distress. She states she is feeling markedly better the burning and itching is improved remarkably. Buttocks and upper posterior thighs and medial thighs demonstrate diffuse pink rash. The furthest extent that the rash had gone down to her lower thighs to just above the knees but has since receded. There is no weepage of the skin the skin remains dry and intact. Psych Mental Status: mental status grossly normal Speech and Movement: speech and movement normal Mood: congruent mood Affect: normal affect DS: Data Vitals/I&O Vitals and I&O: Vital Signs Temperature 36.3 C L 07/31/20 07:38 Temperature Source Tympanic 07/31/20 07:38 Pulse 60 07/31/20 07:38 Pulse Rhythm Regular 07/31/20 08:15 Respiratory Rate 16 07/31/20 07:38 Respiratory Effort Non-Labored 07/31/20 08:15 Respiratory Depth Normal 07/31/20 08:15 Respiratory Pattern Normal 07/31/20 08:15 Blood Pressure 149/78 H 07/31/20 07:38 Blood Pressure Position Sitting 07/29/20 17:19 Pulse Oximetry 99 07/31/20 07:38 Oxygen Delivery Method Room Air 07/31/20 07:38 Oxygen Flow Rate 0 07/31/20 07:38 Pain Level 0 07/31/20 07:38 Intake & Output 07/30/20 07/31/20 07/31/20 23:59 11:59 23:59 Intake Total 840 / 1440 300 / 350 50 / 350 Balance 840 / 1440 300 / 350 50 / 350 Intake: IV 300 / 900 300 / 350 50 / 350 Oral 540 / 540 Other: Stool Size Moderate Stool Characteristics Soft Formed Data Completed and Pending Labs on day of discharge: Labs from last 24 hours 07/31/20 07/31/20 07/31/20 07:45 07:45 07:45 WBC 13.55 H RBC 4.36 Hgb 13.0 Hct 39.0 MCV 89.4 MCH 29.8 MCHC 33.3 RDW 13.8 Plt Count 327 MPV 9.9 Immature Gran % 0.4 Neutrophils % 67.4 Lymphocytes % 20.7 Monocytes % 7.6 Eosinophils % 3.6 Basophils % 0.3 Nucleated RBC % 0 Absolute Neutrophils 9.13 H Absolute Lymphocytes 2.80 Absolute Monocytes 1.03 H Absolute Eosinophils 0.49 Absolute Basophils 0.04 Sodium 142 Potassium 3.5 Chloride 108 H Carbon Dioxide 25.6 Anion Gap 8.4 BUN 12 Creatinine 0.86 Estimated GFR/1.73 m2 >= 60.00 Glucose 90 Calcium 9.0 Magnesium 2.1 Vancomycin Trough 11.8 PFSH Medical History (Updated 07/31/20 @ 15:39 by Pal Oro) Seasonal allergies Surgical History (Updated 07/29/20 @ 23:51 by Petey Romo) Status post repeat low transverse section Social History (Updated 07/29/20 @ 23:53 by Petey Romo) Smoking/Tobacco Use Status: Never Alcohol Intake: current Substance use type: marijuana Do you feel safe at home: Yes Do you feel safe in your relationship?: Yes Additional Social history: Lives in [place]. Enjoys outdoor sports including biking and kayaking. 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 Originally from [facility], moved to the area at age 20
--- NOTE | 2020-07-31 15:55 | PDOC.CMDIS ---
- If Service Date Differs Date of service: 07/31/20 Time of Service: 15:55 LACE Index Scoring Tool - Questions: Length of Stay (in days): 2 Acuity (Admit via E.D.?): Yes E.D. Visits: 1 - Answers: Total Score: 6 Risk of Readmission: Low Risk Care Management Discharge Reason for Hospitalization: Cellulitis Discharge Plan: Dorita is discharged home with no new services. She will follow up with her PCP and plan of care as directed. She is driving herself home via private vehicle, as her car is in the [facility] parking lot. Patient/Family Education Needs: Discharge instructions, limitations, and follow up plan of care, including Ask Me Three and self management.
[2020-08-02 11:16] LABS: Lyme Ab w Rflx to Lyme Confirm Negative (Negative)
[2020-08-02 20:28] LABS: Anaplasma phagocytophilum Negative (Negative); B. miyamotoi PCR Negative (Negative); Babesia divergens/MO-1 Negative (Negative); Babesia duncani Negative (Negative); Babesia microti Negative (Negative); Ehrlichia chaffeensis Negative (Negative); Ehrlichia ewingii/canis Negative (Negative); Ehrlichia muris eauclairensis Negative (Negative)
== END 2020-07-31 16:30 | disposition home or self-care (01) | DRG 603 ==
LOC: ER 20:08 → MS 20:40
PROVIDERS: Internal Medicine; Admitting Provider Family Medicine; Emergency Provider Physician Assistant; Visit Provider Family Medicine
DX: L03.317 Cellulitis of buttock (principal); L03.312 Cellulitis of back [any part except buttock and flank]; L03.314 Cellulitis of groin; L03.115 Cellulitis of right lower limb; L23.7 Allergic contact dermatitis due to plants, except food; Z11.59 Encounter for screening for other viral diseases
CPT/HCPCS: 36415; 80048; 80053; 84145; 87798; 96365; 96375; 99222; 99231; 99238; 99285; J1650; U0003; 80202; 83735; 85025; 86618; 99284; J1200; J2543; J2930; J7512